=== PATIENT | female | born 1945 | race Caucasian/White ===

== ENCOUNTER 2025-02-27 15:48 | Emergency (ER) | payer MEDICARE, MEDICAID ==
[~2025-02-27] VITALS: Ht 170.2 cm; Wt 82.0 kg
[2025-02-27 15:58] VITALS: O2SAT 98
[2025-02-27 16:20] VITALS: BP 105/45; PULSE 65; RESP 16; TEMP 36.9; O2SAT 97
== END 2025-02-27 18:36 | disposition home or self-care (01) ==
LOC: ER 15:48
DX: S09.90XA Unspecified injury of head, initial encounter (principal); I10 Essential (primary) hypertension; E11.9 Type 2 diabetes mellitus without complications; F03.90 Unspecified dementia, unspecified severity, without behavioral disturbance, psychotic disturbance, mood disturbance, and anxiety; Z98.890 Other specified postprocedural states; W01.0XXA Fall on same level from slipping, tripping and stumbling without subsequent striking against object, initial encounter; Y93.89 Activity, other specified; Y92.89 Other specified places as the place of occurrence of the external cause; Y99.8 Other external cause status
CPT/HCPCS: 70486; 99284